=== PATIENT | female | born 2000 | race Caucasian/White ===

== ENCOUNTER 2024-09-29 23:10 | Inpatient (IN) | payer MEDICAID ==
[2024-09-29] MEDS ORDERED: Lactated Ringers 1,000 ML IV SCH (23:45)
[2024-09-29] MEDS ORDERED: Ondansetron 4 MG/2 ML SDV IVPUSH PRN (23:46)
[2024-09-29] MEDS ORDERED: Lidocaine 1% 50 ML MDV INJECT PRN (23:46)
[2024-09-29] MEDS ORDERED: Sodium Chloride 0.9% 10 ML Syringe FLUSH PRN (23:46)
[2024-09-29] MEDS ORDERED: Nalbuphine 10 MG/1 ML Vial IVPUSH PRN (23:46)
[2024-09-30 01:03] LABS: BASOPHILS ABSOLUTE AUTO 0.1 K/mm3 (0.0-0.2); BASOPHILS PERCENT AUTO 0.4 % (0.0-1.0); EOSINOPHILS ABSOLUTE AUTO 0.1 K/mm3 (0.0-0.4); EOSINOPHILS PERCENT AUTO 0.9 % (0.0-6.0); HEMATOCRIT 38.9 % (37.0-47.0); HEMOGLOBIN 13.3 gm/dl (12.0-16.0); IMMATURE GRAN ABSOLUTE AUTO 0.07 K/mm3 (0.00-0.05); IMMATURE GRAN PERCENT AUTO 0.5 % (0.0-0.4); LYMPHOCYTES ABSOLUTE AUTO 2.4 K/mm3 (1.0-4.8); LYMPHOCYTES PERCENT AUTO 15.9 % (24.0-44.0); MEAN CORPUSCULAR HEMOGLOBIN 31.1 pg (28.0-32.0); MEAN CORPUSCULAR HGB CONC 34.2 g/dl (32.0-36.0); MEAN CORPUSCULAR VOLUME 90.9 fl (83.0-99.0); MEAN PLATELET VOLUME 11.8 fl (9.4-12.3); MONOCYTES PERCENT AUTO 6.5 % (0.0-8.0); NEUTROPHILS ABSOLUTE AUTO 11.5 K/mm3 (1.8-7.7); NEUTROPHILS PERCENT AUTO 75.8 % (41.0-71.0); PLATELET COUNT,PLT 219 K/mm3 (150-400); RED BLOOD CELL COUNT 4.28 M/mm3 (4.10-5.30); WHITE BLOOD CELL COUNT,WBC 15.16 K/mm3 (3.9-11.3)
[2024-09-30] MEDS: Oxytocin 10 Units/1 ML SDV IM ONE (01:40)
[2024-09-30] MEDS ORDERED: Witch Hazel Medicated Pads 40/Jar TOP PRN (02:13)
[2024-09-30] MEDS: Ibuprofen 600 MG Tab PO SCH (02:29)
[2024-09-30] MEDS: Acetaminophen 325 MG Tab PO PRN (04:18)
[2024-09-30] MEDS: Oxytocin 10 Units/1 ML SDV ONE (07:24)
[2024-09-30] MEDS ORDERED: Sodium Chloride 0.9% 10 ML Syringe FLUSH SCH (09:00)
[2024-09-30] MEDS: Docusate Sodium 100 MG Cap PO PRN (19:34)
[2024-09-30] MEDS: Benzocaine/Menthol 20%-0.5% Spray 78 GM Cannister TOP PRN (23:53)
== END 2024-10-01 13:30 | disposition home or self-care (01) | DRG 807 ==
LOC: JD.OBCHECK 23:10 → JD.OB 23:25 → JD.OBCHECK 23:46 → JD.OB 09-30 00:05 → OBSVTOIN 09-30 00:33 → JD.OB 09-30 00:34
PROVIDERS: ADMIT Obstetrics & Gynecology; ATTEND Obstetrics & Gynecology
PROC: 10E0XZZ Delivery of Products of Conception, External Approach (ICD-10-PCS; principal; 2024-09-30)
DX: O80 Encounter for full-term uncomplicated delivery (principal); Z37.0 Single live birth; Z3A.38 38 weeks gestation of pregnancy
CPT/HCPCS: 36415; 59025; 59409; 85025; 86592; 86850; 86900; 86901; A9270-GY; J2590